=== PATIENT | female | born 1965 | race Caucasian/White ===

== ENCOUNTER 2016-06-08 10:10 | Emergency (ER) | payer OTHER ==
--- NOTE | 2016-06-08 14:00 | DIAGNOSTIC IMAGING REPORT ---
PROCEDURE: XR ANKLE 3 OR 4 VIEWS - RIGHT INDICATION: LEG PAIN TECHNIQUE: Four views. COMPARISON: None. FINDINGS: Osseous structures and joint spaces are normal. IMPRESSION: 1. Normal right ankle.
--- NOTE | 2016-06-08 14:02 | DIAGNOSTIC IMAGING REPORT ---
PROCEDURE: XR KNEE 4 VIEWS - LEFT INDICATION: LEG PAIN TECHNIQUE: Five views. COMPARISON: None. FINDINGS: There is a comminuted vertical fracture of the lateral tibial plateau with 2 mm of depression of the articular surface. Moderate effusion. The rest of the osseous structures and joint spaces are normal. IMPRESSION: 1. Mildly impacted fracture of the lateral tibial plateau.
--- NOTE | 2016-06-08 14:41 | DIAGNOSTIC IMAGING REPORT ---
PROCEDURE: CT LOWER EXT W/O CONTRAST-LEFT CLINICAL INDICATION: TRAUMA/INJURY TECHNIQUE: Thin-cut noncontrast axial images with sagittal and coronal reformations. COMPARISON: Comparison is made to radiographs of the left knee earlier in the day (06/08/2016). FINDINGS: There is a comminuted intra-articular fracture of the posterior central lateral tibial plateau with 2 mm of depression of the major fragments. This also extends to the posterior lateral cortex of the metaphysis There is a nondisplaced oblique fracture of the medial left fibular head. There is a moderate left knee effusion with flat fat fluid level. IMPRESSION: 1. Comminuted fracture of the left lateral tibial plateau with 2 mm of depression of fragments, also involving the posterior lateral cortex. 2. Nondisplaced fracture of the fibular head. 3. Moderate left knee effusion. 4. Findings discussed with Dr. Benedict. All CT scans at this facility use dose modulation, iterative reconstruction, and/or weight-based dosing when appropriate to reduce radiation dose to as low as reasonably achievable.
--- NOTE | 2016-06-08 15:43 | ED ORDER SUMMARY ---
..... Patient: SUITERGODWIN OrderSheet [facility] VisitID: [id number] [address] [place] [address] 51y, F Registration Date/Time: 06/08/2016 ORDER SHEET Weight: 58.9 kg (stated) Allergies: Tetracyclines & Related GENERAL ORDERS: Knee 4V Left Urgent (11:40 06/08/2016 Viky BLEDSOE) (Ack 11:45 LMuller) (12:49 LMuller) Ankle 3 or 4V Right Urgent (11:41 06/08/2016 Viky BLEDSOE) (Ack 11:45 LMuller) (12:49 LMuller) Splint (LE) (Right) ([place]) (Air Splint) (13:54 06/08/2016 Viky BLEDSOE) (15:38 LMuller) Crutches (13:54 06/08/2016 Viky BLEDSOE) (13:59 Viky BLEDSOE) (Cancelled: Other13:59 Viky BLEDSOE) Knee Immobilizer (13:54 06/08/2016 Viky BLEDSOE) (13:59 Viky BLEDSOE) (Cancelled: Other13:59 Viky BLEDSOE) CT Lower Extremity Without Contrast - Left Urgent (14:00 06/08/2016 Viky BLEDSOE) (Ack 14:01 LMuller) (14:11 LMuller) MEDICATION ORDERS: Simethicone PO 80 mg (NOW) (12:20 06/08/2016 Viky BLEDSOE) (12:22 Federico R.N.) IV FLUIDS: IV NS : initial bolus none -, then 1000 mL/hr for X1 (NOW) (10:30 06/08/2016 Federico R.NElizabeth verbal order read back to Viky BLEDSOE) (10:31 Federico R.N.) Zofran IV 4 mg (NOW) (10:30 06/08/2016 Federico R.NElizabeth verbal order read back to Viky BLEDSOE) (10:32 Federico R.N.) Dilaudid IV 0.5 mg (HIGH ALERT MEDICATION, NOW) (10:30 06/08/2016 Federico R.N. verbal order read back to Viky BLEDSOE) (10:32 Federico R.N.) titrate pain IV NS : initial bolus 1000 mL (1000 mL/hr), then 125 mL/hr for 4h (NOW); Urgent (13:59 06/08/2016 Viky BLEDSOE) (14:05 Federico R.N.) Dilaudid IV 0.5 mg (NOW) (13:59 06/08/2016 Viky BLEDSOE) (Ack 14:05 Federico R.N.) (14:44 Lizaivan R.N.) Zofran IV 4 mg (NOW) (13:06/08/2016 Viky BLEDSOE) (Ack 14:05 Federico R.N.) (14:44 LSrenaivan R.N.) ORDER SHEET NOTES: [Electronically signed by Anurag Benedict MD (16:17 06/08/2016)] [Electronically signed by Sarah Rizzo R.N. (16:37 06/08/2016)] [Electronically locked/signed by Sarah Rizzo R.N. (16:37 06/08/2016)]
--- NOTE | 2016-06-08 15:43 | ED NURSING NOTES ---
Clinical Report - Nurs[facility] [address] [place] [address] 06/08/2016 10:11 Patient: GODWIN HAWKINS TRIAGE Triage time 10:14. Acuity: LEVEL 3. Chief Complaint: FALL and (GLF: pt states her dog was running and knocked her over. She hit the concrete with her head. Denies LOC.). Alert. No acute distress. SEPSIS SCREEN: Sepsis Screen. Negative (no infection suspected/documented). KARINA COMA SCORE: Karina Coma Scale: 15- eyes open spontaneously (4); best verbal response- oriented x 4 (5); best motor response- obeys commands (6). --10:17 Yuko Cox R.N. 10:14 06/08/16. BP: 123/87. HR: 77. RR: 22. O2 saturation: 100%. Temp: 98.7 F. Pain level now 02/10. --10:17 Yuko Cox R.N. Weight: 58.9 kg stated. Height/Length: 65 inches Per Patient. BMI: 21.6. --10:16 Yuko Cox R.N. Medications Migraine Relief Oral, as needed. --10:35 Yuko Cox R.N. Allergies Tetracyclines & Related.(hives) --10:34 Yuko Cox R.N. History Arrived by private vehicle. Historian: patient. Accompanied by spouse. Primary physician (none). Location of injuries: occiput, right ankle and left knee. This occurred today. Treatment BRAKE DRUM MOLDER: None. PAST MEDICAL HX: Immunizations: up-to-date. SOCIAL HX: Never smoker. Occasional alcohol use. No drug use. No infectious disease exposure. ABUSE ASSESSMENT: No report of abuse. SELF HARM ASSESSMENT: A self harm assessment was performed. The patient answered "no" to the question "Do you have thoughts of harming or killing yourself?" and "Have you recently had thoughts about harming or killing others?". NUTRITIONAL RISK ASSESSMENT: The nutritional risk assessment revealed no deficiencies. FUNCTIONAL ASSESSMENT: Functional assessment: no impairments noted. LEARNING NEEDS ASSESSMENT: The learning needs assessment revealed no barriers. --10:17 Yuko Cox R.N. PROBLEMS: Migraine Headache. Sprain. Otitis Externa. Otitis Media. Abdominal Pain. Cholecystitis. --10:35 Yuko Cox R.N. ADDITIONAL SURGERIES: Back Surgery. Cholecystectomy. Tubes in ears [2013]. --10:35 Yuko Cox R.N. Interventions ID band on patient. Transported via stretcher. --10:17 Yuko Cox R.N. PHYSICAL ASSESSMENT To room via stretcher. GENERAL / NEURO / PSYCH: Alert. Oriented X 4. Appears in pain. RESPIRATORY: Respirations not labored. CVS: Pulses within normal limits. Capillary refill less than 2 seconds. SKIN: Skin intact. Skin is warm and dry. --10:17 Yuko Cox R.N. EXTREMITIES: Right ankle: tenderness and swelling. Left knee: tenderness and swelling. Limited ROM secondary to pain (diminished flexion, extension and external and internal rotation). --10:42 Yuko Cox R.N. NURSING PROGRESS NOTES Cold pack applied. Patient gowned. Two patient identifiers checked. Call light placed in reach. Side rails up x 2. Bed placed in lowest position. Brakes of bed on. Patient ready for evaluation- chart flagged. --10:18 Yuko Cox R.N. 10:25 06/08/2016 Site #1 started via IV in the right antecubital space with an 20g angiocath, with aseptic technique and good blood return; one attempt. Blood drawn: rainbow set. Labeled in the presence of the patient and sent to the lab. Saline lock flushed with 10 mL saline. --10:31 Yuko Cox R.N. 10:25 06/08/2016 Started bag #1 1000 mL IV Fluids IV NS (Saline); at 1000 mL/hr over 1 hour(s) via site #1 via IV pump. Allergies verified and confirmed 5 rights. IV patency established. IV site checked: no pain, redness, or swelling. IV flushed thoroughly pre- and post-medication administration. --10:31 Yuko Cox R.N. 10:26 06/08/2016 Zofran (Ondansetron HCl) IVP 4 mg given over 1 minute(s) via site #1. Allergies verified and confirmed 5 rights. IV patency established. IV site checked: no pain, redness, or swelling. IV flushed thoroughly pre- and post-medication administration. --10:32 Yuko Cox R.N. 10:29 06/08/2016 Dilaudid (HYDROmorphone HCl PF) IVP 0.5 mg given over 1 minute(s) via site #1. Allergies verified, confirmed 5 rights and sedative warning given to the patient. IV patency established. IV site checked: no pain, redness, or swelling. IV flushed thoroughly pre- and post-medication administration. --10:32 Yuko Cox R.N. 10:54 06/08/2016 Dilaudid (HYDROmorphone HCl PF) IVP 0.5 mg given over 1 minute(s) via site #1. Allergies verified, confirmed 5 rights and sedative warning given to the patient. IV patency established. IV site checked: no pain, redness, or swelling. IV flushed thoroughly pre- and post-medication administration. --10:54 Yuko Cox R.N. 10:54 06/08/16. BP: 108/50. HR: 72. RR: 16. O2 saturation: 100%. Pain level now 8/10. --10:54 Yuko Cox R.N. 11:18 06/08/2016 IV Fluids IV NS Discontinued: bag #1 infused. Total amount infused: 1000 mL. IV patency established. IV site checked: no pain, redness, or swelling. IV flushed thoroughly. --11:18 Yuko Cox R.N. 12:22 06/08/2016 Simethicone PO 80 mg given. Allergies verified and confirmed 5 rights. --12:22 Yuko Cox R.N. 12:33 06/08/16. BP: 108/53. HR: 73. RR: 16. O2 saturation: 100%. --12:34 Yuko Cox R.N. Patient informed about reason for wait. --12:34 Yuko oCx R.N. Patient transported to radiology by stretcher with tech. --13:39 Yuko Cox R.N. Patient returned from radiology by stretcher with tech. --13:54 Yuko Cox R.N. 13:55 06/08/16. BP: 98/62. HR: 68. RR: 16. O2 saturation: 99%. --13:57 Yuko Cox R.N. 14:05 06/08/2016 Started bag #1 1000 mL IV Fluids IV NS (Saline); at 1000 mL/hr over 1 hour(s) via site #1 via IV pump. Allergies verified and confirmed 5 rights. IV patency established. IV site checked: no pain, redness, or swelling. IV flushed thoroughly pre- and post-medication administration. --14:05 Yuko Cox R.N. Patient transported to CT by stretcher with tech. --14:11 Yuko Cox R.N. 14:35 06/08/16. BP: 100/66. HR: 66. RR: 18. O2 saturation: 100%. Pain level now: 01/11. --14:43 Sarah Rizzo R.N. 14:40 06/08/2016 Zofran (Ondansetron HCl) IVP 4 mg given over 2 minute(s) via site #1. Confirmed 5 rights. --14:44 Sarah Rizzo R.N. 14:44 06/08/2016 Dilaudid (HYDROmorphone HCl PF) IVP 0.5 mg given over 1 minute(s) via site #1. Confirmed 5 rights and sedative warning given. --14:44 Sarah Rizzo R.N. 15:36 06/08/2016 IV Fluids IV NS Discontinued: bag #2 completed. Total amount infused: 1000 mL. --15:46 Sarah Rizzo R.N. 15:46 06/08/2016 Site #1 removed upon discharge. Catheter intact. Bandage applied. --15:46 Sarah Rizzo R.N. DISPOSITION / DISCHARGE Departure time: 1600. ( slightly improved). No learning barriers present. Discharge instructions provided and reviewed with the patient. Reviewed medication(s) side effects, precautions, dosing and course information. Prescription(s) given to the grass farm laborer. Reviewed skin care, crutch walking and positioning instructions. Reviewed referral to family practice and an orthopedic surgeon for followup. Work note given. Patient and grass farm laborer verbalized understanding. Written instructions provided. ( Numerous questions answered, ELIAS spent extra time teaching pt about her injuries, ice packs, follow up care needed, and pain medication prescribed.). The patient was discharged home and accompanied by grass farm laborer. She left the Emergency Department in a wheelchair, via private vehicle and (senior pharmacy technician spent at least an hour with patient, placing splints, crutch training, and assisting pt.). --16:34 Sarah Rizzo R.N. 16:00 06/08/16. BP: 98/64. HR: 85. RR: 18. O2 saturation: 99%. Pain level now: 10/11. --16:34 Sarah Rizzo R.N. Locked/Released at 06/08/2016 16:37 by Sarah Rizzo R.N.
--- NOTE | 2016-06-08 15:43 | ED CLINICAL REPORT ---
Clinical Report - Physicians/Mid Levels [facility] [address] [place] [address] 06/08/2016 10:11 Patient: GODWIN HAWKINS Time Seen: 10:26. Arrived- By private vehicle. Historian- patient. HISTORY OF PRESENT ILLNESS Chief Complaint: FALL. Location of injuries- head, right ankle and left knee. The injury occurred just prior to arrival. Occurred at home. ( her dog came running past her and bumped into her causing her to fall. She struck her head but did not lose consciousness). Fell. The patient complains of severe pain. The patient sustained a blow to the head. No loss of consciousness. REVIEW OF SYSTEMS No chills, fever, sweats, calf pain or chest pain. No cough, difficulty breathing, pedal edema, palpitations or abdominal pain. No constipation, diarrhea, nausea, vomiting or urinary problems. All systems otherwise negative, except as recorded above. SOCIAL HISTORY Never smoker. Occasional alcohol use. No drug use. FAMILY HISTORY No significant family medical history. ADDITIONAL NOTES The nursing notes have been reviewed. PHYSICAL EXAM Vital Signs: 06/08/2016 10:14 BP: 123/87. HR: 77. RR: 22. O2 saturation: 100%. Temp: 98.7 F. Have been reviewed. Appearance: Alert. Head: Occiput: mild tenderness and swelling of the right side of the central occiput. No ecchymosis. Eyes: Pupils equal, round and reactive to light. EOM intact. ENT: No dental injury. Pharynx normal. Neck: Painless ROM. Non-tender. No vertebral tenderness. CVS: Heart sounds normal. Respiratory: Breath sounds normal. Abdomen: No visible injury. Soft and nontender. Bowel sounds normal. No organomegaly. No mass. Back: No tenderness. ROM normal. Skin: Skin intact. Skin warm and dry. Normal skin color. Normal skin turgor. Extremities: Pelvis stable. Left knee: severe tenderness and moderate swelling. Limited ROM secondary to pain (diminished flexion). Small joint effusion present. Neurovascular intact distally. No ecchymosis. Right ankle: moderate tenderness. Limited ROM secondary to pain (diminished plantar flexion and inversion). Neurovascular intact distally. No joint effusion. No lower extremity edema. Neuro: No motor deficit. No sensory deficit. LABS, X-RAYS, AND EKG X-Rays: Right ankle negative. Lt Knee X-ray: (IMPRESSION: 1. Mildly impacted fracture of the lateral tibial plateau.). The X-rays were interpreted contemporaneously by me and discussed with the radiologist. Note - Special Studies: Exam(s): CT LOWER EXT W/O CONTRAST-LEFT Date of Exam: 06/08/2016 __ PROCEDURE: CT LOWER EXT W/O CONTRAST-LEFT CLINICAL INDICATION: TRAUMA/INJURY TECHNIQUE: Thin-cut noncontrast axial images with sagittal and coronal reformations. COMPARISON: Comparison is made to radiographs of the left knee earlier in the day (06/08/2016). FINDINGS: There is a comminuted intra-articular fracture of the posterior central lateral tibial plateau with 2 mm of depression of the major fragments. This also extends to the posterior lateral cortex of the metaphysis There is a nondisplaced oblique fracture of the medial left fibular head. There is a moderate left knee effusion with flat fat fluid level. IMPRESSION: 1. Comminuted fracture of the left lateral tibial plateau with 2 mm of depression of fragments, also involving the posterior lateral cortex. 2. Nondisplaced fracture of the fibular head. 3. Moderate left knee effusion. PROGRESS AND PROCEDURES Splint Application: Knee immobilizer applied to left knee. Splint applied by tech. Reassessed extremity following splint application. Neurovascular intact. Follow-up recommended. Fitted for crutches by the tech. Splint Application #2: Stirrup velcro air splint applied to right ankle. Reassessed extremity following splint application. Neurovascular intact. Follow-up recommended. Course of Care: Patient is stable. Consult obtained from orthopedics. Jeff. Case discussed. Phone consult only. Will see patient in the office in 5 days. Patient/family counseled. Old medical records reviewed. Disposition: Discharged. Condition: stable. CLINICAL IMPRESSION Minor head injury. No loss of consciousness. Sprain of the right ankle. Single contusion to the scalp. Fracture of the proximal aspect of the left fibula. Fracture of the lateral condyle of the left tibia. Fall. INSTRUCTIONS Apply ice. Use crutches until released (as tolerated). Wear knee immobilizer until released and splint until released. No driving or operating machinery while taking medication. Sedative medication was given during your visit. No weight bearing. (Use a wheelchair as prescribed, as discussed). Warnings: HEAD INJURY PRECAUTIONS: An observer must check on the patient every 2 hours for the next 24 hours (awaken if sleeping) to confirm that the patient responds as expected, is not confused, has no new weakness or numbness, and has no other problems. COMPLICATIONS: Complications from this condition include: possible injury to a nerve, possible injury to a tendon and possible injury to a ligament. Future problems may include scarring, loss of function, pain, deformity and poor fracture healing. It is important to follow up with a physician for further evaluation and treatment. GENERAL WARNINGS: Return or contact your physician immediately if your condition worsens or changes unexpectedly, if not improving as expected, or if other problems arise. Prescription Medications: Hydrocodone/APAP 5mg/325mg: take 1 to 2 orally every 6 hours as needed for pain. Dispense fifteen (15). No refills. Zofran 4 mg: Take 1 orally every six hours as needed for nausea/vomiting. Dispense ten (10). No refills. Substitution is permissible. OTC Medications: Motrin (available over the counter): take according to label instructions. Understanding of the discharge instructions verbalized by patient and family. Follow-up with: [facility], , [address], , [place], [address] Follow up in three days. Call for the next available appointment. (Electronically signed by Anurag Benedict MD 06/08/2016 16:17)
--- NOTE | 2016-06-08 15:43 | ED CLINICAL REPORT ---
Clinical Report - Physicians/Mid Levels [facility] [address] [place] [address] 06/08/2016 10:11 Patient: GODWIN HAWKINS Time Seen: 10:26. Arrived- By private vehicle. Historian- patient. HISTORY OF PRESENT ILLNESS Chief Complaint: FALL. Location of injuries- head, right ankle and left knee. The injury occurred just prior to arrival. Occurred at home. ( her dog came running past her and bumped into her causing her to fall. She struck her head but did not lose consciousness). Fell. The patient complains of severe pain. The patient sustained a blow to the head. No loss of consciousness. REVIEW OF SYSTEMS No chills, fever, sweats, calf pain or chest pain. No cough, difficulty breathing, pedal edema, palpitations or abdominal pain. No constipation, diarrhea, nausea, vomiting or urinary problems. All systems otherwise negative, except as recorded above. SOCIAL HISTORY Never smoker. Occasional alcohol use. No drug use. FAMILY HISTORY No significant family medical history. ADDITIONAL NOTES The nursing notes have been reviewed. PHYSICAL EXAM Vital Signs: 06/08/2016 10:14 BP: 123/87. HR: 77. RR: 22. O2 saturation: 100%. Temp: 98.7 F. Have been reviewed. Appearance: Alert. Head: Occiput: mild tenderness and swelling of the right side of the central occiput. No ecchymosis. Eyes: Pupils equal, round and reactive to light. EOM intact. ENT: No dental injury. Pharynx normal. Neck: Painless ROM. Non-tender. No vertebral tenderness. CVS: Heart sounds normal. Respiratory: Breath sounds normal. Abdomen: No visible injury. Soft and nontender. Bowel sounds normal. No organomegaly. No mass. Back: No tenderness. ROM normal. Skin: Skin intact. Skin warm and dry. Normal skin color. Normal skin turgor. Extremities: Pelvis stable. Left knee: severe tenderness and moderate swelling. Limited ROM secondary to pain (diminished flexion). Small joint effusion present. Neurovascular intact distally. No ecchymosis. Right ankle: moderate tenderness. Limited ROM secondary to pain (diminished plantar flexion and inversion). Neurovascular intact distally. No joint effusion. No lower extremity edema. Neuro: No motor deficit. No sensory deficit. LABS, X-RAYS, AND EKG X-Rays: Right ankle negative. Lt Knee X-ray: (IMPRESSION: 1. Mildly impacted fracture of the lateral tibial plateau.). The X-rays were interpreted contemporaneously by me and discussed with the radiologist. Note - Special Studies: Exam(s): CT LOWER EXT W/O CONTRAST-LEFT Date of Exam: 06/08/2016 __ PROCEDURE: CT LOWER EXT W/O CONTRAST-LEFT CLINICAL INDICATION: TRAUMA/INJURY TECHNIQUE: Thin-cut noncontrast axial images with sagittal and coronal reformations. COMPARISON: Comparison is made to radiographs of the left knee earlier in the day (06/08/2016). FINDINGS: There is a comminuted intra-articular fracture of the posterior central lateral tibial plateau with 2 mm of depression of the major fragments. This also extends to the posterior lateral cortex of the metaphysis There is a nondisplaced oblique fracture of the medial left fibular head. There is a moderate left knee effusion with flat fat fluid level. IMPRESSION: 1. Comminuted fracture of the left lateral tibial plateau with 2 mm of depression of fragments, also involving the posterior lateral cortex. 2. Nondisplaced fracture of the fibular head. 3. Moderate left knee effusion. PROGRESS AND PROCEDURES Splint Application: Knee immobilizer applied to left knee. Splint applied by tech. Reassessed extremity following splint application. Neurovascular intact. Follow-up recommended. Fitted for crutches by the tech. Splint Application #2: Stirrup velcro air splint applied to right ankle. Reassessed extremity following splint application. Neurovascular intact. Follow-up recommended. Course of Care: Patient is stable. Consult obtained from orthopedics. Jeff. Case discussed. Phone consult only. Will see patient in the office in 5 days. Patient/family counseled. Old medical records reviewed. Disposition: Discharged. Condition: stable. CLINICAL IMPRESSION Minor head injury. No loss of consciousness. Sprain of the right ankle. Single contusion to the scalp. Fracture of the proximal aspect of the left fibula. Fracture of the lateral condyle of the left tibia. Fall. INSTRUCTIONS Apply ice. Use crutches until released (as tolerated). Wear knee immobilizer until released and splint until released. No driving or operating machinery while taking medication. Sedative medication was given during your visit. No weight bearing. (Use a wheelchair as prescribed, as discussed). Warnings: HEAD INJURY PRECAUTIONS: An observer must check on the patient every 2 hours for the next 24 hours (awaken if sleeping) to confirm that the patient responds as expected, is not confused, has no new weakness or numbness, and has no other problems. COMPLICATIONS: Complications from this condition include: possible injury to a nerve, possible injury to a tendon and possible injury to a ligament. Future problems may include scarring, loss of function, pain, deformity and poor fracture healing. It is important to follow up with a physician for further evaluation and treatment. GENERAL WARNINGS: Return or contact your physician immediately if your condition worsens or changes unexpectedly, if not improving as expected, or if other problems arise. Prescription Medications: Hydrocodone/APAP 5mg/325mg: take 1 to 2 orally every 6 hours as needed for pain. Dispense fifteen (15). No refills. Zofran 4 mg: Take 1 orally every six hours as needed for nausea/vomiting. Dispense ten (10). No refills. Substitution is permissible. OTC Medications: Motrin (available over the counter): take according to label instructions. Understanding of the discharge instructions verbalized by patient and family. Follow-up with: [facility], , [address], , [place], [id number] Follow up in three days. Call for the next available appointment. (Electronically signed by Anurag Benedict MD 06/08/2016 16:17)
--- NOTE | 2016-06-08 15:43 | ED ORDER SUMMARY ---
..... Patient: SUITERGODWIN OrderSheet [facility] VisitID: [id number] [address] [place] [address] 51y, F Registration Date/Time: 06/08/2016 ORDER SHEET Weight: 58.9 kg (stated) Allergies: Tetracyclines & Related GENERAL ORDERS: Knee 4V Left Urgent (11:40 06/08/2016 Viky BLEDSOE) (Ack 11:45 LMuller) (12:49 LMuller) Ankle 3 or 4V Right Urgent (11:41 06/08/2016 Viky BLEDSOE) (Ack 11:45 LMuller) (12:49 LMuller) Splint (LE) (Right) (Sugar Tong) (Air Splint) (13:54 06/08/2016 Viky BLEDSOE) (15:38 LMuller) Crutches (13:54 06/08/2016 Viky BLEDSOE) (13:59 Viky BLEDSOE) (Cancelled: Other13:59 Viky BLEDSOE) Knee Immobilizer (13:54 06/08/2016 Viky BLEDSOE) (13:59 Viky BLEDSOE) (Cancelled: Other13:59 Viky BLEDSOE) CT Lower Extremity Without Contrast - Left Urgent (14:00 06/08/2016 Viky BLEDSOE) (Ack 14:01 LMuller) (14:11 LMuller) MEDICATION ORDERS: Simethicone PO 80 mg (NOW) (12:20 06/08/2016 Viky LBEDSOE) (12:22 Federico R.N.) IV FLUIDS: IV NS : initial bolus none -, then 1000 mL/hr for X1 (NOW) (10:30 06/08/2016 Federico R.NElizabeth verbal order read back to Viky BLEDSOE) (10:31 Federico R.N.) Zofran IV 4 mg (NOW) (10:30 06/08/2016 Federico R.NElizabeth verbal order read back to Viky BLEDSOE) (10:32 Federico R.N.) Dilaudid IV 0.5 mg (HIGH ALERT MEDICATION, NOW) (10:30 06/08/2016 Federico R.N. verbal order read back to Viky BLEDSOE) (10:32 Federico R.N.) titrate pain IV NS : initial bolus 1000 mL (1000 mL/hr), then 125 mL/hr for 4h (NOW); Urgent (13:59 06/08/2016 Viky BLEDSOE) (14:05 Federico R.N.) Dilaudid IV 0.5 mg (NOW) (13:59 06/08/2016 Viky BLEDSOE) (Ack 14:05 Federico R.N.) (14:44 Lizaivan R.N.) Zofran IV 4 mg (NOW) (13:06/08/2016 Viky BLEDSOE) (Ack 14:05 Federico R.N.) (14:44 LSrenaivan R.N.) ORDER SHEET NOTES: [Electronically signed by Anurag Benedict MD (16:17 06/08/2016)] [Electronically signed by Sarah Rizzo R.N. (16:37 06/08/2016)] [Electronically locked/signed by Sarah Rizzo R.N. (16:37 06/08/2016)]
--- NOTE | 2016-06-08 15:43 | ED NURSING NOTES ---
Clinical Report - Nurses [facility] [address] [place] [address] 06/08/2016 10:11 Patient: GODWIN HAWKINS TRIAGE Triage time 10:14. Acuity: LEVEL 3. Chief Complaint: FALL and (GLF: pt states her dog was running and knocked her over. She hit the concrete with her head. Denies LOC.). Alert. No acute distress. SEPSIS SCREEN: Sepsis Screen. Negative (no infection suspected/documented). KARINA COMA SCORE: Karina Coma Scale: 15- eyes open spontaneously (4); best verbal response- oriented x 4 (5); best motor response- obeys commands (6). --10:17 Yuko Cox R.N. 10:14 06/08/16. BP: 123/87. HR: 77. RR: 22. O2 saturation: 100%. Temp: 98.7 F. Pain level now 02/10. --10:17 Yuko Cox R.N. Weight: 58.9 kg stated. Height/Length: 65 inches Per Patient. BMI: 21.6. --10:16 Yuko Cox R.N. Medications Migraine Relief Oral, as needed. --10:35 Yuko Cox R.N. Allergies Tetracyclines & Related.(hives) --10:34 Yuko Cox R.N. History Arrived by private vehicle. Historian: patient. Accompanied by spouse. Primary physician (none). Location of injuries: occiput, right ankle and left knee. This occurred today. Treatment FOREST SCIENCE PROFESSOR: None. PAST MEDICAL HX: Immunizations: up-to-date. SOCIAL HX: Never smoker. Occasional alcohol use. No drug use. No infectious disease exposure. ABUSE ASSESSMENT: No report of abuse. SELF HARM ASSESSMENT: A self harm assessment was performed. The patient answered "no" to the question "Do you have thoughts of harming or killing yourself?" and "Have you recently had thoughts about harming or killing others?". NUTRITIONAL RISK ASSESSMENT: The nutritional risk assessment revealed no deficiencies. FUNCTIONAL ASSESSMENT: Functional assessment: no impairments noted. LEARNING NEEDS ASSESSMENT: The learning needs assessment revealed no barriers. --10:17 Yuko Cox R.N. PROBLEMS: Migraine Headache. Sprain. Otitis Externa. Otitis Media. Abdominal Pain. Cholecystitis. --10:35 Yuko Cox R.N. ADDITIONAL SURGERIES: Back Surgery. Cholecystectomy. Tubes in ears [2013]. --10:35 Yuko Cox R.N. Interventions ID band on patient. Transported via stretcher. --10:17 Yuko Cox R.N. PHYSICAL ASSESSMENT To room via stretcher. GENERAL / NEURO / PSYCH: Alert. Oriented X 4. Appears in pain. RESPIRATORY: Respirations not labored. CVS: Pulses within normal limits. Capillary refill less than 2 seconds. SKIN: Skin intact. Skin is warm and dry. --10:17 Yuko Cox R.N. EXTREMITIES: Right ankle: tenderness and swelling. Left knee: tenderness and swelling. Limited ROM secondary to pain (diminished flexion, extension and external and internal rotation). --10:42 Yuko Cox R.N. NURSING PROGRESS NOTES Cold pack applied. Patient gowned. Two patient identifiers checked. Call light placed in reach. Side rails up x 2. Bed placed in lowest position. Brakes of bed on. Patient ready for evaluation- chart flagged. --10:18 Yuko Cox R.N. 10:25 06/08/2016 Site #1 started via IV in the right antecubital space with an 20g angiocath, with aseptic technique and good blood return; one attempt. Blood drawn: rainbow set. Labeled in the presence of the patient and sent to the lab. Saline lock flushed with 10 mL saline. --10:31 Yuko Cox R.N. 10:25 06/08/2016 Started bag #1 1000 mL IV Fluids IV NS (Saline); at 1000 mL/hr over 1 hour(s) via site #1 via IV pump. Allergies verified and confirmed 5 rights. IV patency established. IV site checked: no pain, redness, or swelling. IV flushed thoroughly pre- and post-medication administration. --10:31 Yuko Cox R.N. 10:26 06/08/2016 Zofran (Ondansetron HCl) IVP 4 mg given over 1 minute(s) via site #1. Allergies verified and confirmed 5 rights. IV patency established. IV site checked: no pain, redness, or swelling. IV flushed thoroughly pre- and post-medication administration. --10:32 Yuko Cox R.N. 10:29 06/08/2016 Dilaudid (HYDROmorphone HCl PF) IVP 0.5 mg given over 1 minute(s) via site #1. Allergies verified, confirmed 5 rights and sedative warning given to the patient. IV patency established. IV site checked: no pain, redness, or swelling. IV flushed thoroughly pre- and post-medication administration. --10:32 Yuko Cox R.N. 10:54 06/08/2016 Dilaudid (HYDROmorphone HCl PF) IVP 0.5 mg given over 1 minute(s) via site #1. Allergies verified, confirmed 5 rights and sedative warning given to the patient. IV patency established. IV site checked: no pain, redness, or swelling. IV flushed thoroughly pre- and post-medication administration. --10:54 Yuko Cox R.N. 10:54 06/08/16. BP: 108/50. HR: 72. RR: 16. O2 saturation: 100%. Pain level now 8/10. --10:54 Yuko Cox R.N. 11:18 06/08/2016 IV Fluids IV NS Discontinued: bag #1 infused. Total amount infused: 1000 mL. IV patency established. IV site checked: no pain, redness, or swelling. IV flushed thoroughly. --11:18 Yuko Cox R.N. 12:22 06/08/2016 Simethicone PO 80 mg given. Allergies verified and confirmed 5 rights. --12:22 Yuko Cox R.N. 12:33 06/08/16. BP: 108/53. HR: 73. RR: 16. O2 saturation: 100%. --12:34 Yuko Cox R.N. Patient informed about reason for wait. --12:34 Yuko Cox R.N. Patient transported to radiology by stretcher with tech. --13:39 Yuko Cox R.N. Patient returned from radiology by stretcher with tech. --13:54 Yuko Cox R.N. 13:55 06/08/16. BP: 98/62. HR: 68. RR: 16. O2 saturation: 99%. --13:57 Yuko Cox R.N. 14:05 06/08/2016 Started bag #1 1000 mL IV Fluids IV NS (Saline); at 1000 mL/hr over 1 hour(s) via site #1 via IV pump. Allergies verified and confirmed 5 rights. IV patency established. IV site checked: no pain, redness, or swelling. IV flushed thoroughly pre- and post-medication administration. --14:05 Yuko Cox R.N. Patient transported to CT by stretcher with tech. --14:11 Yuko Cox R.N. 14:35 06/08/16. BP: 100/66. HR: 66. RR: 18. O2 saturation: 100%. Pain level now: 01/11. --14:43 Sarah Rizzo R.N. 14:40 06/08/2016 Zofran (Ondansetron HCl) IVP 4 mg given over 2 minute(s) via site #1. Confirmed 5 rights. --14:44 Sarah Rizzo R.N. 14:44 06/08/2016 Dilaudid (HYDROmorphone HCl PF) IVP 0.5 mg given over 1 minute(s) via site #1. Confirmed 5 rights and sedative warning given. --14:44 Sarah Rizzo R.N. 15:36 06/08/2016 IV Fluids IV NS Discontinued: bag #2 completed. Total amount infused: 1000 mL. --15:46 Sarah Rizzo R.N. 15:46 06/08/2016 Site #1 removed upon discharge. Catheter intact. Bandage applied. --15:46 Sarah Rizzo R.N. DISPOSITION / DISCHARGE Departure time: 1600. ( slightly improved). No learning barriers present. Discharge instructions provided and reviewed with the patient. Reviewed medication(s) side effects, precautions, dosing and course information. Prescription(s) given to the belly roller. Reviewed skin care, crutch walking and positioning instructions. Reviewed referral to family practice and an orthopedic surgeon for followup. Work note given. Patient and belly roller verbalized understanding. Written instructions provided. ( Numerous questions answered, ELIAS spent extra time teaching pt about her injuries, ice packs, follow up care needed, and pain medication prescribed.). The patient was discharged home and accompanied by belly roller. She left the Emergency Department in a wheelchair, via private vehicle and (computer service technician spent at least an hour with patient, placing splints, crutch training, and assisting pt.). --16:34 Sarah Rizzo R.N. 16:00 06/08/16. BP: 98/64. HR: 85. RR: 18. O2 saturation: 99%. Pain level now: 10/11. --16:34 Sarah Rizzo R.N. Locked/Released at 06/08/2016 16:37 by Sarah Rizzo R.N.
--- NOTE | 2016-06-08 16:37 | ED MED RECONCILIATION SUMMARY ---
Patient: GODWIN HAWKINS Medication Reconciliation Report [facility] VisitID: [id number] [address] [place] [address] 51y, F Registration Date/Time: 06/08/2016 Weight: 58.9 kg Height/Length: 65 in. BMI: 21.6 ALLERGIES: Tetracyclines & Related The patient's Home Medications are listed below: THE FOLLOWING MEDICATIONS NEED TO BE RECONCILED: Migraine Relief Oral The source(s) of the original Home Medication information: Not obtained. The following Medications were given to the patient in the Emergency Department: IV NS IV Fluids bolus 0, then 1000 mL/hr, administered: 06/08/2016 10:25:00 AM Zofran [IVP] IVP 4 mg, administered: 06/08/2016 10:26:00 AM Dilaudid [IVP] IVP 0.5 mg, administered: 06/08/2016 10:29:00 AM Dilaudid [IVP] IVP 0.5 mg, administered: 06/08/2016 10:54:00 AM Simethicone [PO] PO 80 mg, administered: 06/08/2016 12:22:00 PM IV NS IV Fluids bolus 0, then 1000 mL/hr, administered: 06/08/2016 2:05:00 PM Zofran [IVP] IVP 4 mg, administered: 06/08/2016 2:40:00 PM Dilaudid [IVP] IVP 0.5 mg, administered: 06/08/2016 2:44:00 PM The following Medications were prescribed to the patient: Motrin (available over the counter): take according to label instructions. -- Anurag Benedict MD Hydrocodone/APAP 5mg/325mg: take 1 to 2 orally every 6 hours as needed for pain. Dispense fifteen (15). No refills. -- Anurag Benedict MD Zofran 4 mg: Take 1 orally every six hours as needed for nausea/vomiting. Dispense ten (10). No refills. Substitution is permissible. -- Anurag Benedict MD
--- NOTE | 2016-06-08 16:37 | ED MAR SUMMARY ---
..... Medication Administration Record [facility] [address] [place] [address] Patient: GODWIN HAWKINS Visit ID: [id number] 51y, F Weight: 58.9 kg Height/Length: 65 in BMI: 21.6 ALLERGIES: Tetracyclines & Related Start 10:25 06/08/2016 Yuko Cox R.N., Stop 11:18 06/08/2016 Yuko Cox R.N. Medication Administered: IV NS (SALINE), Dose: IV Fluids over 1 hour(s), Rate: 1000 mL/hr, Dispensed: 1000 mL bag, Site: #1 right AC. Medication Ordered: IV NS : initial bolus none -, then 1000 mL/hr for X1 (NOW). Given 10:26 06/08/2016 Yuko Cox R.N. Medication Administered: ZOFRAN [IVP] (ONDANSETRON HCL), Dose: 4 mg IVP over 1 minute(s), Site: #1 right AC. Medication Ordered: Zofran IV 4 mg (NOW). Given 10:29 06/08/2016 Yuko Cox R.N. Medication Administered: DILAUDID [IVP] (HYDROMORPHONE HCL PF), Dose: 0.5 mg IVP over 1 minute(s), Site: #1 right AC. Medication Ordered: Dilaudid IV 0.5 mg (HIGH ALERT MEDICATION, NOW). Given 10:54 06/08/2016 Yuko Cox R.N. Medication Administered: DILAUDID [IVP] (HYDROMORPHONE HCL PF), Dose: 0.5 mg IVP over 1 minute(s), Site: #1 right AC. Medication Ordered: Dilaudid IV 0.5 mg (HIGH ALERT MEDICATION, NOW). Given 12:22 06/08/2016 Yuko Cox R.N. Medication Administered: SIMETHICONE [PO], Dose: 80 mg PO. Medication Ordered: Simethicone PO 80 mg (NOW). Start 14:05 06/08/2016 Yuko Cox R.N., Stop 15:36 06/08/2016 Sarah Rizzo R.N. Medication Administered: IV NS (SALINE), Dose: IV Fluids over 1 hour(s), Rate: 1000 mL/hr, Dispensed: 1000 mL bag, Site: #1 right AC. Medication Ordered: IV NS : initial bolus 1000 mL (1000 mL/hr), then 125 mL/hr for 4h (NOW); Urgent. Given 14:40 06/08/2016 Sarah Rizzo R.N. Medication Administered: ZOFRAN [IVP] (ONDANSETRON HCL), Dose: 4 mg IVP over 2 minute(s), Site: #1 right AC. Medication Ordered: Zofran IV 4 mg (NOW). Given 14:44 06/08/2016 Sarah Rizzo R.N. Medication Administered: DILAUDID [IVP] (HYDROMORPHONE HCL PF), Dose: 0.5 mg IVP over 1 minute(s), Site: #1 right AC. Medication Ordered: Dilaudid IV 0.5 mg (NOW).
--- NOTE | 2016-06-08 16:37 | ED MAR SUMMARY ---
..... Medication Administration Record [facility] [address] [place] [address] Patient: GODWIN HAWKINS Visit ID: [id number] 51y, F Weight: 58.9 kg Height/Length: 65 in BMI: 21.6 ALLERGIES: Tetracyclines & Related Start 10:25 06/08/2016 Yuko Cox R.N., Stop 11:18 06/08/2016 Yuko Cox R.N. Medication Administered: IV NS (SALINE), Dose: IV Fluids over 1 hour(s), Rate: 1000 mL/hr, Dispensed: 1000 mL bag, Site: #1 right AC. Medication Ordered: IV NS : initial bolus none -, then 1000 mL/hr for X1 (NOW). Given 10:26 06/08/2016 Yuko Cox R.N. Medication Administered: ZOFRAN [IVP] (ONDANSETRON HCL), Dose: 4 mg IVP over 1 minute(s), Site: #1 right AC. Medication Ordered: Zofran IV 4 mg (NOW). Given 10:29 06/08/2016 Yuko Cox R.N. Medication Administered: DILAUDID [IVP] (HYDROMORPHONE HCL PF), Dose: 0.5 mg IVP over 1 minute(s), Site: #1 right AC. Medication Ordered: Dilaudid IV 0.5 mg (HIGH ALERT MEDICATION, NOW). Given 10:54 06/08/2016 Yuko Cox R.N. Medication Administered: DILAUDID [IVP] (HYDROMORPHONE HCL PF), Dose: 0.5 mg IVP over 1 minute(s), Site: #1 right AC. Medication Ordered: Dilaudid IV 0.5 mg (HIGH ALERT MEDICATION, NOW). Given 12:22 06/08/2016 Yuko Cox R.N. Medication Administered: SIMETHICONE [PO], Dose: 80 mg PO. Medication Ordered: Simethicone PO 80 mg (NOW). Start 14:05 06/08/2016 Yuko Cox R.N., Stop 15:36 06/08/2016 Sarah Rizzo R.N. Medication Administered: IV NS (SALINE), Dose: IV Fluids over 1 hour(s), Rate: 1000 mL/hr, Dispensed: 1000 mL bag, Site: #1 right AC. Medication Ordered: IV NS : initial bolus 1000 mL (1000 mL/hr), then 125 mL/hr for 4h (NOW); Urgent. Given 14:40 06/08/2016 Sarah Rizzo R.N. Medication Administered: ZOFRAN [IVP] (ONDANSETRON HCL), Dose: 4 mg IVP over 2 minute(s), Site: #1 right AC. Medication Ordered: Zofran IV 4 mg (NOW). Given 14:44 06/08/2016 Sarah Rizzo R.N. Medication Administered: DILAUDID [IVP] (HYDROMORPHONE HCL PF), Dose: 0.5 mg IVP over 1 minute(s), Site: #1 right AC. Medication Ordered: Dilaudid IV 0.5 mg (NOW).
--- NOTE | 2016-06-08 16:37 | ED DISCHARGE INSTRUCTIONS ---
Patient: SUITERGODWIN General Instructions [facility] VisitID: [id number] [address] [place], [place] [id number] 51y, F Registration Date/Time: 06/08/2016 Minor head injury. No loss of consciousness. Sprain of the right ankle. Single contusion to the scalp. Fracture of the proximal aspect of the left fibula. Fracture of the lateral condyle of the left tibia. Fall. INSTRUCTIONS Apply ice. Use crutches until released (as tolerated). Wear knee immobilizer until released and splint until released. No driving or operating machinery while taking medication. Sedative medication was given during your visit. No weight bearing. (Use a wheelchair as prescribed, as discussed). Warnings: HEAD INJURY PRECAUTIONS: An observer must check on the patient every 2 hours for the next 24 hours (awaken if sleeping) to confirm that the patient responds as expected, is not confused, has no new weakness or numbness, and has no other problems. COMPLICATIONS: Complications from this condition include: possible injury to a nerve, possible injury to a tendon and possible injury to a ligament. Future problems may include scarring, loss of function, pain, deformity and poor fracture healing. It is important to follow up with a physician for further evaluation and treatment. GENERAL WARNINGS: Return or contact your physician immediately if your condition worsens or changes unexpectedly, if not improving as expected, or if other problems arise. Prescription Medications: Hydrocodone/APAP 5mg/325mg: take 1 to 2 orally every 6 hours as needed for pain. Dispense fifteen (15). No refills. Zofran 4 mg: Take 1 orally every six hours as needed for nausea/vomiting. Dispense ten (10). No refills. Substitution is permissible. OTC Medications: Motrin (available over the counter): take according to label instructions. Understanding of the discharge instructions verbalized by patient and family. Follow-up with: [facility], , [address], [place], [address] Follow up in three days. Call for the next available appointment. ADDITIONAL INFORMATION Mechanical Fall You have had a fall today. It appears that the cause is mechanical. That means that you slipped, tripped or lost your balance. If your fall had been due to fainting or a seizure, further tests would be required. Home Care: Rest today and resume your normal activities when you are feeling back to normal. If you were injured during the fall, follow the advice from your doctor regarding care of your injury. You may use acetaminophen (Tylenol) or ibuprofen (Motrin, Advil) to control pain, unless another pain medicine was prescribed. [NOTE: If you have chronic liver or kidney disease or ever had a stomach ulcer or GI bleeding, talk with your doctor before using these medicines.] Fall Prevention: Was there anything that caused your fall that can be fixed, removed, or replaced? Make your home safe by keeping walkways clear of objects you may trip over. Use non-slip pads under rugs. Do not walk in poorly lit areas. Do not stand on chairs or wobbly ladders. Use caution when reaching overhead or looking upward. This position can cause a loss of balance. Be sure your shoes fit properly, have non-slip bottoms and are in good condition. Be cautious when going up and down curbs, and walking on uneven sidewalks. If your balance is poor, consider using a cane or walker. Stay as active as you can. Balance, flexibility, strength, and endurance all come from exercise. They all play a role in preventing falls. Follow Up with your doctor or as advised by our staff. Get Prompt Medical Attention if any of the following occur: Repeated mechanical falls, or unexplained falls Dizziness, fainting or seizure Severe headache Chest pain or shortness of breath Palpitations (very rapid or very slow or irregular heartbeat) Blood in vomit, stools (black or red color) Weakness of an arm or leg or one side of the face Difficulty with speech or vision Sprain, Ankle,With X-Ray A sprain is an injury to the ligaments or capsule that holds a joint together. There are no broken bones. Most sprains take from four to six weeks to heal. If the ligament is completely torn (severe sprain), it can take several months to recover. Mild to moderate sprains may be treated with an elastic wrap or an in-shoe splint to provide support and prevent re-injury. A mild sprain may not require any additional support. A severe sprain may require surgery to repair. Home care The following guidelines will help you care for your injury at home: Stay off the injured leg as much as possible until you can walk on it without pain. If you have a lot of pain with walking, crutches or a walker may be prescribed. (These can be rented or purchased at many pharmacies and surgical or orthopedic supply stores). Follow your doctor's advice regarding when to begin bearing weight on that leg. Keep your leg elevated to reduce pain and swelling. When sleeping, place a pillow under the injured leg. When sitting, support the injured leg so it is level with your waist. This is very important during the first 48 hours. Apply an ice pack (ice cubes in a plastic bag, wrapped in a towel) over the injured area for 20 minutes every 12 hours the first day. You can place the ice pack directly over the splint/cast. If you were given a boot, open it to apply the ice pack. Continue with ice packs 34 times a day for the next two days, then as needed for the relief of pain and swelling. You may use acetaminophen or ibuprofen to control pain, unless another pain medicine was prescribed. If you have chronic liver or kidney disease or ever had a stomach ulcer or GI bleeding, talk with your doctor before using these medicines. You may return to sports after healing, when you can run without pain. A sprained ankle is at risk for re-injury during the first six weeks. During that time, protect your ankle with an in-shoe splint that prevents tilting of your ankle from side to side. This is very important if you do active work or play sports during that time. Follow-up care Any X-rays you had today dont show any broken bones, breaks, or fractures. Sometimes fractures dont show up on the first X-ray. Bruises and sprains can sometimes hurt as much as a fracture. These injuries can take time to heal completely. If your symptoms dont improve or they get worse, talk with your doctor. You may need a repeat X-ray. When to seek medical care Get prompt medical attention if any of the following occur: The plaster cast or splint gets wet or soft The fiberglass cast or splint gets wet and does not dry for 24 hours Pain or swelling increases, or redness appears Toes become cold, blue, numb or tingly Re-injure your ankle Head Injury With Wake-Up (Adult) You have had a head injury. It does not appear serious at this time. Symptoms of a more serious problem (concussion, bruising, or bleeding in the brain) may appear later. Therefore, watch for the WARNING SIGNS listed below. Home Care: During the next 24 hours someone must stay with you. This person should wake you every 2 hours to check for the signs below. If you have swelling of the face or scalp, apply an ice pack (ice cubes in a plastic bag, wrapped in a towel) for 20 minutes every 1-2 hours until the swelling starts to go down. Do not use aspirin or ibuprofen (Motrin, Advil) after a head injury. You may use acetaminophen (Tylenol) to control pain, unless another pain medicine was prescribed. [NOTE: If you have chronic liver or kidney disease or ever had a stomach ulcer or GI bleeding, talk with your doctor before using these medicines.] For the next 24 hours: Do not take alcohol, sedatives, or medicines that make you sleepy. Do not drive or operate machinery. Avoid strenuous activities. No lifting or straining. If you have had any symptoms of a concussion today (nausea, vomiting, dizziness, confusion, headache, memory loss, or you were knocked out), do not return to sports or any activity that could result in another head injury until all symptoms are gone and you have been cleared by your doctor. A second head injury before fully recovering from the first one can lead to serious brain injury. Follow Up with your doctor if symptoms are not improving after 24 hours, or as directed. [NOTE: A radiologist will review any X-rays or CT scans that were taken. We will notify you of any new findings that may affect your care.] Get Prompt Medical Attention if any of the following WARNING SIGNS occur: Repeated vomiting Severe or worsening headache or dizziness Unusual drowsiness, or unable to awaken as usual Confusion or change in behavior or speech, memory loss, blurred vision Convulsion (seizure) Increasing scalp or face swelling Redness, warmth or pus from the swollen area Fluid drainage or bleeding from the nose or ears Scalp Contusion [W/ Wake-Up] A scalp contusion is a bruise with swelling. Sometimes there is bleeding under the skin. The swelling should start to go down within two days. Although there is no sign of a serious injury at this time, symptoms may show up later. These could be a sign of a more serious problem (bruising or bleeding in the brain). Home Care: During the next 24 hours someone must stay with you. This person should WAKE YOU EVERY TWO HOURS to check for the signs below. If you have swelling of the face or scalp, apply an ice pack (ice cubes in a plastic bag, wrapped in a towel). Do this for 20 minutes every 1-2 hours until the swelling starts to go down. You may use acetaminophen (Tylenol) or ibuprofen (Motrin, Advil) to control pain, unless another pain medicine was prescribed. [ NOTE : If you have chronic liver or kidney disease or ever had a stomach ulcer or GI bleeding, talk with your doctor before using these medicines.] For the next 24 hours: Do not take alcohol, sedatives or medicines that make you sleepy. Do not drive or operate machinery. Avoid strenuous activities. No lifting or straining. If you have had any symptoms of a concussion today (nausea, vomiting, dizziness, confusion, headache, memory loss or if you were knocked out), do not return to sports or any activity that could result in another head injury until all symptoms are gone and you have been cleared by your doctor. A second head injury before fully recovering from the first one can lead to serious brain injury. Follow Up with your doctor if symptoms are not improving after 24 hours, or as directed. [NOTE: Any X-rays or CT scans taken will be reviewed by a radiologist. You will be notified of any new findings that may affect your care.] Get Prompt Medical Attention if any of the following occur: Repeated vomiting Severe or worsening headache or dizziness Unusual drowsiness, or unable to awaken as usual Confusion or change in behavior or speech, memory loss, blurred vision Convulsion (seizure) Increasing scalp or face swelling Redness, warmth or pus from the swollen area Fluid drainage or bleeding from the nose or ears Fever of 100.4F(38C) or higher, or as directed by your healthcare provider Crutch Walking Crutch Adjustment Make sure the crutches you use are adjusted to fit you. When you stand, there should be room to fit 2-3 fingers between the top of the crutch and your armpit. Your elbow should be slightly bent when holding the hand toolroom machinist. Crutch Walking: Place the crutches forward 12" in front of and 6" to the side of your feet. Lean your weight forward as you push down on the handgrips. Your weight should be on your hands and yourstrong leg, not your armpits . Let your body swing through, landing on the strong leg. Advance the crutches forward again. The crutch and the injured leg should move together. Going Up Steps: ("Up with the good") With both crutches on the same step as your feet, push down on the handgrips. Balancing with very light pressure on the weak leg, let your hands support your weight as you raise your strong leg onto the next higher step. Transfer all your weight to your strong leg (still bent) as you move the crutches up to the next step alongside the strong leg. With your weight evenly balanced on the two crutches and your strong leg, straighten your strong knee as you raise the weak leg up to the next step. Going Down Steps: ("Down with the bad") With both crutches on the same step as your feet, push down on the handgrips. With your weight evenly balanced on the two crutches and your strong leg, bend your strong knee as you lower the weak leg down to the next step. Let your strong leg support you (still bent) as you move the crutches down alongside the weak leg. Transfer your weight to your hands, balancing with very light pressure on the weak leg as you lower your strong leg alongside your weak leg. Knee Immobilizer A KNEE IMMOBILIZER is used to provide support and limit movement of the knee. This will make you more comfortable as your injury heals. Home Use: 1) Unless told otherwise, the knee brace should be worn whenever you are out of bed. You may wear it in bed while asleep for the first few nights or until the pain starts to go away. Otherwise, remove the brace at night to avoid muscle stiffness from lack of joint movement. 2) You can open the velcro brace to dress, bathe and apply ice packs as directed. Get Prompt Medical Attention if any of the following occur: -- Worsening pain in the knee -- Weakness or numbness or tingling in the foot -- Increased swelling, redness or warmth of the knee joint Aircast Traditional splints and casts for the foot and ankle protect the injury by preventing movement at the joints. However, many injuries heal better and faster if the injured joint can be moved, while protected at the same time. This is the reason for using an Aircast. There are two common type of AirCasts: 1) Air-Stirrup ankle splint This is often used to treat ankle sprains. It contains padded air cells in a plastic frame that fits into your shoe. This allows you to walk while preventing the ankle joint from rolling in or out causing re-injury. Ankle sprains can take 4-6 weeks to heal. Persons with severe injuries or over age 60 may require more time to heal. During that time, you are prone to re-injury by suddenly twisting your ankle again while the ligaments are still weak. When treating a sprain, the Air-Stirrup splint should be worn whenever walking for at least four weeks, or as long as you continue to have ankle pain. You should continue to wear it at least 6 weeks whenever running, playing sports or any activity where there is increased risk of re-injury. Talk to your doctor for specific advice about the treatment of your condition. 2) SP-Walker boot This is a short boot that provides support and protection to the foot and ankle while allowing you to walk. It contains padded air cells that provide compression and help circulation. It is used for both foot and ankle injuries - both sprains and minor fractures. Talk to your doctor for specific advice about the treatment of your condition. Air-Stirrup and SP-Walker are trademarks of [employer]. For more information about their products, see [email or web address]. Head Injury With Wake-Up (Adult) You have had a head injury. It does not appear serious at this time. Symptoms of a more serious problem (concussion, bruising, or bleeding in the brain) may appear later. Therefore, watch for the WARNING SIGNS listed below. Home Care: During the next 24 hours someone must stay with you. This person should wake you every 2 hours to check for the signs below. If you have swelling of the face or scalp, apply an ice pack (ice cubes in a plastic bag, wrapped in a towel) for 20 minutes every 1-2 hours until the swelling starts to go down. Do not use aspirin or ibuprofen (Motrin, Advil) after a head injury. You may use acetaminophen (Tylenol) to control pain, unless another pain medicine was prescribed. [NOTE: If you have chronic liver or kidney disease or ever had a stomach ulcer or GI bleeding, talk with your doctor before using these medicines.] For the next 24 hours: Do not take alcohol, sedatives, or medicines that make you sleepy. Do not drive or operate machinery. Avoid strenuous activities. No lifting or straining. If you have had any symptoms of a concussion today (nausea, vomiting, dizziness, confusion, headache, memory loss, or you were knocked out), do not return to sports or any activity that could result in another head injury until all symptoms are gone and you have been cleared by your doctor. A second head injury before fully recovering from the first one can lead to serious brain injury. Follow Up with your doctor if symptoms are not improving after 24 hours, or as directed. [NOTE: A radiologist will review any X-rays or CT scans that were taken. We will notify you of any new findings that may affect your care.] Get Prompt Medical Attention if any of the following WARNING SIGNS occur: Repeated vomiting Severe or worsening headache or dizziness Unusual drowsiness, or unable to awaken as usual Confusion or change in behavior or speech, memory loss, blurred vision Convulsion (seizure) Increasing scalp or face swelling Redness, warmth or pus from the swollen area Fluid drainage or bleeding from the nose or ears Hydrocodone Bitartrate, Acetaminophen Oral tablet What is this medicine? ACETAMINOPHEN; HYDROCODONE (a set a GUANAKITO rich fen; katherine droe KOE done) is a pain reliever. It is used to treat mild to moderate pain. How should I use this medicine? Take this medicine by mouth. Swallow it with a full glass of water. Follow the directions on the prescription label. If the medicine upsets your stomach, take the medicine with food or milk. Do not take more than you are told to take. Talk to your administrative library assistant regarding the use of this medicine in children. This medicine is not approved for use in children. What side effects may I notice from receiving this medicine? Side effects that you should report to your doctor or health special needs child caregiver as soon as possible: allergic reactions like skin rash, itching or hives, swelling of the face, lips, or tongue breathing problems confusion feeling faint or lightheaded, falls stomach pain yellowing of the eyes or skin Side effects that usually do not require medical attention (report to your doctor or health special needs child caregiver if they continue or are bothersome): nausea, vomiting stomach upset What may interact with this medicine? alcohol antihistamines isoniazid medicines for depression, anxiety, or psychotic disturbances medicines for sleep muscle relaxants naltrexone narcotic medicines (opiates) for pain phenobarbital ritonavir tramadol What if I miss a dose? If you miss a dose, take it as soon as you can. If it is almost time for your next dose, take only that dose. Do not take double or extra doses. Where should I keep my medicine? Keep out of the reach of children. This medicine can be abused. Keep your medicine in a safe place to protect it from theft. Do not share this medicine with anyone. Selling or giving away this medicine is dangerous and against the law. Store at room temperature between 15 and 30 degrees C (59 and 86 degrees F). Protect from light. Keep container tightly closed. Throw away any unused medicine after the expiration date. Discard unused medicine and used packaging carefully. Pets and children can be harmed if they find used or lost packages. What should I tell my health care provider before I take this medicine? They need to know if you have any of these conditions: brain tumor Crohn's disease, inflammatory bowel disease, or ulcerative colitis drink more than 3 alcohol-containing drinks per day drug abuse or addiction head injury heart or circulation problems kidney disease or problems going to the bathroom liver disease lung disease, asthma, or breathing problems an unusual or allergic reaction to acetaminophen, hydrocodone, other opioid analgesics, other medicines, foods, dyes, or preservatives or trying to get breast-feeding What should I watch for while using this medicine? Tell your doctor or health special needs child caregiver if your pain does not go away, if it gets worse, or if you have new or a different type of pain. You may develop tolerance to the medicine. Tolerance means that you will need a higher dose of the medicine for pain relief. Tolerance is normal and is expected if you take the medicine for a long time. Do not suddenly stop taking your medicine because you may develop a severe reaction. Your body becomes used to the medicine. This does NOT mean you are addicted. Addiction is a behavior related to getting and using a drug for a non-medical reason. If you have pain, you have a medical reason to take pain medicine. Your doctor will tell you how much medicine to take. If your doctor wants you to stop the medicine, the dose will be slowly lowered over time to avoid any side effects. You may get drowsy or dizzy when you first start taking the medicine or change doses. Do not drive, use machinery, or do anything that may be dangerous until you know how the medicine affects you. Stand or sit up slowly. There are different types of narcotic medicines (opiates) for pain. If you take more than one type at the same time, you may have more side effects. Give your health care provider a list of all medicines you use. Your doctor will tell you how much medicine to take. Do not take more medicine than directed. Call emergency for help if you have problems breathing. The medicine will cause constipation. Try to have a bowel movement at least every 2 to 3 days. If you do not have a bowel movement for 3 days, call your doctor or health special needs child caregiver. Too much acetaminophen can be very dangerous. Do not take Tylenol (acetaminophen) or medicines that contain acetaminophen with this medicine. Many non-prescription medicines contain acetaminophen. Always read the labels carefully. Ondansetron Oral disintegrating tablet What is this medicine? ONDANSETRON (on DIONNA se mau) is used to treat nausea and vomiting caused by chemotherapy. It is also used to prevent or treat nausea and vomiting after surgery. How should I use this medicine? These tablets are made to dissolve in the mouth. Do not try to push the tablet through the foil backing. With dry hands, peel away the foil backing and gently remove the tablet. Place the tablet in the mouth and allow it to dissolve, then swallow. While you may take these tablets with water, it is not necessary to do so. Talk to your administrative library assistant regarding the use of this medicine in children. Special care may be needed. What side effects may I notice from receiving this medicine? Side effects that you should report to your doctor or health special needs child caregiver as soon as possible: allergic reactions like skin rash, itching or hives, swelling of the face, lips, or tongue breathing problems dizziness fast or irregular heartbeat feeling faint or lightheaded, falls fever and chills swelling of the hands and feet tightness in the chest Side effects that usually do not require medical attention (report to your doctor or health special needs child caregiver if they continue or are bothersome): constipation or diarrhea headache What may interact with this medicine? Do not take this medicine with any of the following medications: -apomorphine -cisapride -dofetilide -dronedarone -pimozide -thioridazine -ziprasidone This medicine may also interact with the following medications: -carbamazepine -phenytoin -rifampicin -tramadol -other medicines that prolong the QT interval (cause an abnormal heart rhythm) What if I miss a dose? If you miss a dose, take it as soon as you can. If it is almost time for your next dose, take only that dose. Do not take double or extra doses. Where should I keep my medicine? Keep out of the reach of children. Store between 2 and 30 degrees C (36 and 86 degrees F). Throw away any unused medicine after the expiration date. What should I tell my health care provider before I take this medicine? They need to know if you have any of these conditions: heart disease history of irregular heartbeat liver disease low levels of magnesium or potassium in the blood an unusual or allergic reaction to ondansetron, granisetron, other medicines, foods, dyes, or preservatives or trying to get breast-feeding What should I watch for while using this medicine? Check with your doctor or health special needs child caregiver as soon as you can if you have any sign of an allergic reaction. Ibuprofen Oral tablet What is this medicine? IBUPROFEN (eye BYOO proe fen) is a non-steroidal anti-inflammatory drug (NSAID). It is used for dental pain, fever, headaches or migraines, osteoarthritis, rheumatoid arthritis, or painful monthly periods. It can also relieve minor aches and pains caused by a cold, flu, or sore throat. How should I use this medicine? Take this medicine by mouth with a glass of water. Follow the directions on the prescription label. Take this medicine with food if your stomach gets upset. Try to not lie down for at least 10 minutes after you take the medicine. Take your medicine at regular intervals. Do not take your medicine more often than directed. A special MedGuide will be given to you by the pharmacist with each prescription and refill. Be sure to read this information carefully each time. Talk to your administrative library assistant regarding the use of this medicine in children. Special care may be needed. What side effects may I notice from receiving this medicine? Side effects that you should report to your doctor or health special needs child caregiver as soon as possible: allergic reactions like skin rash, itching or hives, swelling of the face, lips, or tongue black or bloody stools, blood in the urine or in vomit breathing problems changes in vision chest pain general ill feeling or flu-like symptoms nausea or vomiting redness, blistering, peeling or loosening of the skin, including inside the mouth slurred speech or weakness on one side of the body stomach pain unexplained weight gain or swelling unusually weak or tired yellowing of eyes or skin Side effects that usually do not require medical attention (report to your doctor or health special needs child caregiver if they continue or are bothersome): constipation or diarrhea dizziness gas or heartburn stomach upset What may interact with this medicine? Do not take this medicine with any of the following medications: cidofovir ketorolac methotrexate pemetrexed This medicine may also interact with the following medications: alcohol aspirin diuretics lithium other drugs for inflammation like prednisone warfarin What if I miss a dose? If you miss a dose, take it as soon as you can. If it is almost time for your next dose, take only that dose. Do not take double or extra doses. Where should I keep my medicine? Keep out of the reach of children. Store at room temperature between 15 and 30 degrees C (59 and 86 degrees F). Keep container tightly closed. Throw away any unused medicine after the expiration date. What should I tell my health care provider before I take this medicine? They need to know if you have any of these conditions: asthma cigarette smoker drink more than 3 alcohol containing drinks a day heart disease or circulation problems such as heart failure or leg edema (fluid retention) high blood pressure kidney disease liver disease stomach bleeding or ulcers an unusual or allergic reaction to ibuprofen, aspirin, other NSAIDS, other medicines, foods, dyes, or preservatives or trying to get breast-feeding What should I watch for while using this medicine? Tell your doctor or healthcare professional if your symptoms do not start to get better or if they get worse. This medicine does not prevent heart attack or stroke. In fact, this medicine may increase the chance of a heart attack or stroke. The chance may increase with longer use of this medicine and in people who have heart disease. If you take aspirin to prevent heart attack or stroke, talk with your doctor or health special needs child caregiver. Do not take other medicines that contain aspirin, ibuprofen, or naproxen with this medicine. Side effects such as stomach upset, nausea, or ulcers may be more likely to occur. Many medicines available without a prescription should not be taken with this medicine. This medicine can cause ulcers and bleeding in the stomach and intestines at any time during treatment. Ulcers and bleeding can happen without warning symptoms and can cause . To reduce your risk, do not smoke cigarettes or drink alcohol while you are taking this medicine. You may get drowsy or dizzy. Do not drive, use machinery, or do anything that needs mental alertness until you know how this medicine affects you. Do not stand or sit up quickly, especially if you are an older patient. This reduces the risk of dizzy or fainting spells. This medicine can cause you to bleed more easily. Try to avoid damage to your teeth and gums when you brush or floss your teeth. You have been given the following additional information: Fall, Mechanical Sprain, Ankle, With X-Ray HEAD INJURY with Wake-Up (Adult) Scalp Contusion With Wake Up Crutch Walking Knee Immobilizer Aircast Splint And Boot HEAD INJURY with Wake-Up (Adult) Hydrocodone Bitartrate, Acetaminophen Oral tablet Ondansetron Oral disintegrating tablet Ibuprofen Oral tablet No driving or operating machinery while taking medication. Sedative medication was given during your visit. No weight bearing. (Electronically signed by Anurag Benedict MD 06/08/2016 16:17)
--- NOTE | 2016-06-08 16:37 | ED MED RECONCILIATION SUMMARY ---
Patient: GODWIN HAWKINS Medication Reconciliation Report [facility] VisitID: [id number] [address] [place] [address] 51y, F Registration Date/Time: 06/08/2016 Weight: 58.9 kg Height/Length: 65 in. BMI: 21.6 ALLERGIES: Tetracyclines & Related The patient's Home Medications are listed below: THE FOLLOWING MEDICATIONS NEED TO BE RECONCILED: Migraine Relief Oral The source(s) of the original Home Medication information: Not obtained. The following Medications were given to the patient in the Emergency Department: IV NS IV Fluids bolus 0, then 1000 mL/hr, administered: 06/08/2016 10:25:00 AM Zofran [IVP] IVP 4 mg, administered: 06/08/2016 10:26:00 AM Dilaudid [IVP] IVP 0.5 mg, administered: 06/08/2016 10:29:00 AM Dilaudid [IVP] IVP 0.5 mg, administered: 06/08/2016 10:54:00 AM Simethicone [PO] PO 80 mg, administered: 06/08/2016 12:22:00 PM IV NS IV Fluids bolus 0, then 1000 mL/hr, administered: 06/08/2016 2:05:00 PM Zofran [IVP] IVP 4 mg, administered: 06/08/2016 2:40:00 PM Dilaudid [IVP] IVP 0.5 mg, administered: 06/08/2016 2:44:00 PM The following Medications were prescribed to the patient: Motrin (available over the counter): take according to label instructions. -- Anurag Benedict MD Hydrocodone/APAP 5mg/325mg: take 1 to 2 orally every 6 hours as needed for pain. Dispense fifteen (15). No refills. -- Anurag Benedict MD Zofran 4 mg: Take 1 orally every six hours as needed for nausea/vomiting. Dispense ten (10). No refills. Substitution is permissible. -- Anurag Benedict MD
== END 2016-06-08 16:00 | disposition home or self-care (01) ==
LOC: ED SRH 10:10
DX: S82.832A Other fracture of upper and lower end of left fibula, initial encounter for closed fracture (principal); S82.122A Displaced fracture of lateral condyle of left tibia, initial encounter for closed fracture; S00.03XA Contusion of scalp, initial encounter; S93.401A Sprain of unspecified ligament of right ankle, initial encounter; S09.90XA Unspecified injury of head, initial encounter; W54.1XXA Struck by dog, initial encounter; Y99.9 Unspecified external cause status; Y92.009 Unspecified place in unspecified non-institutional (private) residence as the place of occurrence of the external cause; Y93.9 Activity, unspecified; Z88.1 Allergy status to other antibiotic agents